=== PATIENT | female | born 2005 | race Caucasian/White ===

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

== ENCOUNTER 2023-12-09 15:21 | Emergency (ER) | payer OTHER ==
[~2023-12-09] VITALS: Ht 160 cm; Wt 108.9 kg
[~2023-12-09 15:21] MED LIST changes: +MACROBID100 M1 PO
[2023-12-09] MEDS ORDERED: PANTOPRAZOLE SO40 MG PO (15:32)
[2023-12-09] MEDS ORDERED: Dicyclomine Hydrochloride 20 MG/10 ML OSYR PO STA (15:42)
[2023-12-09] MEDS ORDERED: MG-AL HYDROXIDE/SIMETICONE 30 ML UDC PO STA (15:42)
[2023-12-09] MEDS ORDERED: Lidocaine Hydrochloride 15 ML UDC PO STA (15:42)
[2023-12-09 15:55] LABS: BILIRUBIN Negative (Negative); BLOOD Negative (Negative); CLARITY Clear (Clear); COLOR Yellow (Yellow); GLUCOSE Negative (Negative); KETONE 1+ (Negative); LEUKO ESTERASE Negative (Negative); NITRITE Negative (Negative); SPECIFIC GRAVITY 1.025 (1.001-1.030)
[2023-12-09 16:28] LABS: BASO % 0.2 % (0.0-1.0); EOS % 0.4 % (1.0-4.0); HEMATOCRIT 45.2 % (37.0-47.0); LYMPH # 1.7 10*3/uL (1.3-4.4); LYMPH % 20.4 % (27.0-41.0); MEAN CELL VOLUME 81.3 fl (81.0-99.0); MEAN CORPUSCULAR HGB 24.6 pg (27.0-31.0); MEAN CORPUSCULAR HGB CONC 30.3 g/dl (33.0-37.0); MEAN PLATELET VOLUME 11.6 fl (9.6-12.3); MONO % 12.1 % (3.0-9.0); NEUT # 5.7 10*3/uL (2.3-7.9); NEUT % 66.8 % (47.0-73.0); PLATELET COUNT AUTOMATED 188 10*3/uL (130-400); RED BLOOD COUNT 5.56 10*6/uL (4.10-5.10); RED CELL DISTRI WIDTH 16.5 % (0-14.5); WHITE BLOOD COUNT 8.5 10*3/uL (4.8-10.8)
[2023-12-09 16:47] LABS: BUN 5 mg/dl (9-23); CHLORIDE 104 mmol/L (98-107); POTASSIUM 3.6 mmol/L (3.4-5.1)
[2023-12-09 16:49] LABS: MUCOUS 2+; RBC 0-2 rbc/hpf (0-2)
[2023-12-09] MEDS ORDERED: Carafate1 GM PO (17:03)
== END 2023-12-09 17:16 | disposition home or self-care (01) ==
LOC: ED 15:21
PROVIDERS: Student in an Organized Health Care Education/Training Program
DX: K29.70 Gastritis, unspecified, without bleeding (principal); K20.90 Esophagitis, unspecified without bleeding; F90.9 Attention-deficit hyperactivity disorder, unspecified type; F41.9 Anxiety disorder, unspecified; F32.A Depression, unspecified; J45.909 Unspecified asthma, uncomplicated

== ENCOUNTER 2023-12-13 17:23 | Emergency (ER) | payer OTHER ==
[~2023-12-13] VITALS: Ht 160 cm; Wt 108.9 kg
[~2023-12-13 17:23] MED LIST changes: +Carafate1 GM PO; +PANTOPRAZOLE SO40 MG PO
[2023-12-13] MEDS ORDERED: FAMOTIDINE 20 MG TAB PO ONE (17:40)
[2023-12-13] MEDS ORDERED: Ondansetron Hydrochloride 4 MG TAB PO ONE (17:40)
[2023-12-13 17:59] LABS: BASO % 0.3 % (0.0-1.0); EOS # 0.2 10*3/uL (0.0-0.4); EOS % 2.4 % (1.0-4.0); HEMATOCRIT 43.5 % (37.0-47.0); LYMPH # 1.6 10*3/uL (1.3-4.4); LYMPH % 21.4 % (27.0-41.0); MEAN CORPUSCULAR HGB 24.4 pg (27.0-31.0); MEAN CORPUSCULAR HGB CONC 29.4 g/dl (33.0-37.0); MEAN PLATELET VOLUME 11.3 fl (9.6-12.3); MONO % 12.9 % (3.0-9.0); NEUT # 4.7 10*3/uL (2.3-7.9); NEUT % 62.7 % (47.0-73.0); PLATELET COUNT AUTOMATED 263 10*3/uL (130-400); RED BLOOD COUNT 5.24 10*6/uL (4.10-5.10); RED CELL DISTRI WIDTH 16.5 % (0-14.5); WHITE BLOOD COUNT 7.5 10*3/uL (4.8-10.8)
[2023-12-13 18:11] LABS: BILIRUBIN Negative (Negative); BLOOD Negative (Negative); CLARITY Cloudy (Clear); COLOR Yellow (Yellow); GLUCOSE Negative (Negative); KETONE Trace (Negative); LEUKO ESTERASE Negative (Negative); NITRITE Negative (Negative); UROBILINOGEN 0.2 E.U./dl (0.0-1.0)
[2023-12-13 18:20] LABS: ALKALINE PHOSPHATASE 142 U/L (46-116); CHLORIDE 106 mmol/L (98-107); LIPASE 33 U/L (12-53); POTASSIUM 3.2 mmol/L (3.4-5.1); SGPT/ALT 29 U/L (5-49); TOTAL PROTEIN 7.7 gm/dL (6.0-8.0)
[2023-12-13 18:22] LABS: BUN < 5 mg/dl (9-23)
[2023-12-13] MEDS ORDERED: POTASSIUM CHLORIDE 20 MEQ TAB PO ONE (18:30)
[2023-12-13 18:34] LABS: BACTERIA TRACE; EPITHELIAL CELLS 16-20; MUCOUS 3+; WBC 0-2 wbc/hpf (0-5)
[2023-12-13] MEDS ORDERED: PEPCID40 MG PO (18:34)
[2023-12-13] MEDS ORDERED: AMOX-CLAV 875-1 EACH PO (18:34)
== END 2023-12-13 18:39 | disposition home or self-care (01) ==
LOC: ED 17:23
PROVIDERS: Nurse Practitioner
DX: J02.0 Streptococcal pharyngitis (principal); R10.10 Upper abdominal pain, unspecified; R11.0 Nausea; Z79.899 Other long term (current) drug therapy

== ENCOUNTER 2023-12-17 08:26 | Emergency (ER) | payer OTHER ==
[~2023-12-17] VITALS: Ht 160 cm; Wt 108.9 kg
[~2023-12-17 08:26] MED LIST changes: +AMOX-CLAV 875-1 EACH PO; +PEPCID40 MG PO
[2023-12-17 09:02] LABS: HEMATOCRIT 44.7 % (37.0-47.0); MEAN CELL VOLUME 80.1 fl (81.0-99.0); MEAN CORPUSCULAR HGB 24.2 pg (27.0-31.0); MEAN CORPUSCULAR HGB CONC 30.2 g/dl (33.0-37.0); MEAN PLATELET VOLUME 10.8 fl (9.6-12.3); PLATELET COUNT AUTOMATED 351 10*3/uL (130-400); RED BLOOD COUNT 5.58 10*6/uL (4.10-5.10); RED CELL DISTRI WIDTH 16.2 % (0-14.5); WHITE BLOOD COUNT 8.1 10*3/uL (4.8-10.8)
[2023-12-17 09:22] LABS: BUN 7 mg/dl (9-23); CHLORIDE 107 mmol/L (98-107); POTASSIUM 3.7 mmol/L (3.4-5.1)
[2023-12-17 09:24] LABS: MANUAL DIFF REFLEX YES
[2023-12-17 09:47] LABS: BASOPHILS 1 % (0-1); PLATELET SUFFICIENCY NORMAL (NORMAL); TOTAL CELLS COUNTED 100 #CELLS
[2023-12-17] MEDS ORDERED: methylPREDNISolone sod succ 125 MG VIAL IM ONE (09:55)
== END 2023-12-17 10:16 | disposition home or self-care (01) ==
LOC: ED 08:26
PROVIDERS: Internal Medicine
DX: B34.9 Viral infection, unspecified (principal); Z20.822 Contact with and (suspected) exposure to COVID-19; R79.82 Elevated C-reactive protein (CRP); F90.9 Attention-deficit hyperactivity disorder, unspecified type; F41.9 Anxiety disorder, unspecified; F32.A Depression, unspecified; R11.0 Nausea; J45.909 Unspecified asthma, uncomplicated